=== PATIENT | female | born 1990 | race African-American/Black ===

== ENCOUNTER 2019-04-11 23:51 | Inpatient (IN) | payer OTHER ==
[2019-04-12] MEDS ORDERED: ONDANSETRON 4 MG TAB PO (01:00)
[2019-04-12] MEDS ORDERED: BISACODYL 10 MG SUPP PR (01:00)
[2019-04-12] MEDS ORDERED: hydrOXYzine HCL 25 MG TAB PO (01:00)
[2019-04-12] MEDS ORDERED: ACETAMINOPHEN 500 MG TAB PO (01:00)
[2019-04-12] MEDS: HYDROCODONE/APAP (5/325) TAB PO ×3 (01:01→21:20)
[2019-04-12 02:50] LABS: ADD UMIC YES; UR AMORPHOUS CRYSTAL FEW /HPF (NONE SEEN); UR ASCORBIC ACID NEGATIVE (NEGATIVE); UR BACTERIA FEW /HPF (NONE SEEN); UR BILIRUBIN (Dip) NEGATIVE (NEGATIVE); UR BLOOD (Dip) NEGATIVE (NEGATIVE); UR CLARITY SLIGHTLY CLOUDY (CLEAR); UR COLOR YELLOW (YELLOW); UR GLUCOSE (Dip) NEGATIVE (NEGATIVE); UR KETONES (Dip) NEGATIVE (NEGATIVE); UR LEUKOCYTE ESTERASE (Dip) 1+ Leu/ul (NEGATIVE); UR NITRITE (Dip) NEGATIVE (NEGATIVE); UR RBC 1 /HPF (0-5); UR SPECIFIC GRAVITY (Dip) 1.017 (1.003-1.030); UR SQUAMOUS EPITHELIAL CELL MANY /HPF (FEW); UR TOTAL PROTEIN (Dip) NEGATIVE (NEGATIVE); UR UROBILINOGEN (Dip) NEGATIVE (NEGATIVE); UR WBC 53 /HPF (0-5)
[2019-04-12 07:16] LABS: ADD MAN DIFF? NO
[2019-04-12 07:24] LABS: WHITE BLOOD COUNT 7.4 10^3/ul (4.8-10.8)
[2019-04-12 07:24] LABS: BASOPHILS % 0.3 % (0.0-2.0); EOSINOPHILS # 0.2 10^3/ul (0.0-0.5); HEMATOCRIT 32.7 % (37.0-47.0); LYMPHOCYTES # 1.8 10^3/ul (0.8-2.9); LYMPHOCYTES % 24.4 % (15.0-51.0); MEAN CORPUSCULAR HGB CONC 30.6 g/dl (32.0-37.0); MEAN CORPUSCULAR VOLUME 81.8 fl (82.0-101.0); MEAN PLATELET VOLUME 9.2 fl (7.4-10.4); MONOCYTES % 13.6 % (0.0-11.0); NEUTROPHIL # 4.4 10^3/ul (1.6-7.5); NEUTROPHILS % 58.9 % (39.0-77.0); PLATELET COUNT 315 10^3/UL (140-415); RED CELL DISTRIBUTION WIDTH 15.9 % (11.5-14.5)
[2019-04-12 07:52] LABS: ALANINE AMINOTRANSFERASE 35 IU/L (13-69); ALBUMIN/GLOBULIN RATIO 1.81; ALKALINE PHOSPHATASE 43 IU/L (42-121); ANION GAP 8 (5-13); ASPARTATE AMINO TRANSFERASE 18 IU/L (15-46); BILIRUBIN,INDIRECT 0.6 mg/dl (0-1.1); BILIRUBIN,TOTAL 0.6 mg/dl (0.2-1.3); BLOOD UREA NITROGEN 16 mg/dl (7-20); CALCIUM 9.8 mg/dl (8.4-10.2); CARBON DIOXIDE 27 mmol/L (21-31); CHLORIDE 104 mmol/L (97-110); Estimated GFR > 60 mL/min (>60); GLUCOSE 87 mg/dl (70-220); POTASSIUM 4.1 mmol/L (3.5-5.1); SODIUM 139 mmol/L (135-144); TOTAL PROTEIN 6.2 g/dl (6.1-8.1)
[2019-04-12] MEDS: GABAPENTIN 300 MG CAP PO ×3 (08:52→21:12)
[2019-04-12] MEDS: POLYETHYLENE GLYCOL 17 GM PACKET PO (08:56)
[2019-04-12] MEDS: DOCUSATE SODIUM 100 MG CAP PO ×2 (08:56→21:00)
[2019-04-12] MEDS: HEPARIN 5,000 UNIT/1 ML VIAL SC ×2 (08:56→21:20)
[2019-04-12] MEDS: ACETAMINOPHEN 325 MG TAB PO (09:11)
[2019-04-12] MEDS: CIPROFLOXACIN 250 MG TAB PO ×2 (09:55→18:13)
[2019-04-12 09:57] LABS: IRON 28 ug/dl (35-150)
[2019-04-12 10:08] LABS: % IRON SATURATION 10 % SAT (22-52); TOTAL IRON BINDING CAPACITY 290 ug/dl (241-421)
[2019-04-12] MEDS ORDERED: PENDING SANTYL ORDER FOR WOUND CARE XX (10:30)
[2019-04-12] MEDS: DIPHENHYDRAMINE 50 MG CAP PO (14:57)
[2019-04-12] MEDS: SENNA TAB PO (21:00)
[2019-04-12] MEDS: NORTRIPTYLINE 10 MG CAP PO (21:11)
[2019-04-13] MEDS: CIPROFLOXACIN 250 MG TAB PO ×2 (06:41→17:26)
[2019-04-13] MEDS: POLYETHYLENE GLYCOL 17 GM PACKET PO (09:00)
[2019-04-13] MEDS: ZINC SULFATE 220 MG CAP PO (09:12)
[2019-04-13] MEDS: ASCORBIC ACID 250 MG TAB PO (09:12)
[2019-04-13] MEDS: MULTIVITAMINS THERAPEUTIC TAB PO (09:12)
[2019-04-13] MEDS: GABAPENTIN 300 MG CAP PO ×3 (09:12→20:54)
[2019-04-13] MEDS: DOCUSATE SODIUM 100 MG CAP PO ×2 (09:12→20:53)
[2019-04-13] MEDS: HEPARIN 5,000 UNIT/1 ML VIAL SC ×2 (09:17→21:01)
[2019-04-13] MEDS: MUPIROCIN 2% 22 GM OINT TOP ×2 (12:12→20:53)
[2019-04-13] MEDS: SENNA TAB PO (20:53)
[2019-04-13] MEDS: NORTRIPTYLINE 10 MG CAP PO (20:54)
[2019-04-13] MEDS: HYDROCODONE/APAP (5/325) TAB PO (21:04)
[2019-04-13] MEDS: DIPHENHYDRAMINE 50 MG CAP PO (21:04)
[2019-04-14] MEDS: CIPROFLOXACIN 250 MG TAB PO ×2 (06:46→18:04)
[2019-04-14] MEDS: HYDROCODONE/APAP (5/325) TAB PO ×2 (09:09→20:30)
[2019-04-14] MEDS: GABAPENTIN 300 MG CAP PO ×3 (09:09→20:21)
[2019-04-14] MEDS: POLYETHYLENE GLYCOL 17 GM PACKET PO (09:09)
[2019-04-14] MEDS: FERROUS SULFATE (EC) 325 MG TAB PO ×2 (09:09→20:21)
[2019-04-14] MEDS: ZINC SULFATE 220 MG CAP PO (09:10)
[2019-04-14] MEDS: MULTIVITAMINS THERAPEUTIC TAB PO (09:10)
[2019-04-14] MEDS: DOCUSATE SODIUM 100 MG CAP PO ×2 (09:10→20:21)
[2019-04-14] MEDS: ASCORBIC ACID 250 MG TAB PO (09:10)
[2019-04-14] MEDS: CYCLOBENZAPRINE 10 MG TAB PO (09:10)
[2019-04-14] MEDS: HEPARIN 5,000 UNIT/1 ML VIAL SC ×2 (09:11→20:22)
[2019-04-14] MEDS: MUPIROCIN 2% 22 GM OINT TOP ×2 (09:13→20:22)
[2019-04-14] MEDS: NORTRIPTYLINE 10 MG CAP PO (20:21)
[2019-04-14] MEDS: SENNA TAB PO (20:25)
[2019-04-15] MEDS: CIPROFLOXACIN 250 MG TAB PO ×2 (05:36→18:07)
[2019-04-15] MEDS: POLYETHYLENE GLYCOL 17 GM PACKET PO (09:22)
[2019-04-15] MEDS: GABAPENTIN 300 MG CAP PO ×3 (09:23→21:23)
[2019-04-15] MEDS: CYCLOBENZAPRINE 10 MG TAB PO (09:23)
[2019-04-15] MEDS: ZINC SULFATE 220 MG CAP PO (09:23)
[2019-04-15] MEDS: FERROUS SULFATE (EC) 325 MG TAB PO ×2 (09:23→21:23)
[2019-04-15] MEDS: ASCORBIC ACID 250 MG TAB PO (09:23)
[2019-04-15] MEDS: MULTIVITAMINS THERAPEUTIC TAB PO (09:23)
[2019-04-15] MEDS: DOCUSATE SODIUM 100 MG CAP PO ×2 (09:23→21:23)
[2019-04-15] MEDS: HEPARIN 5,000 UNIT/1 ML VIAL SC ×2 (09:24→21:29)
[2019-04-15] MEDS: HYDROCODONE/APAP (5/325) TAB PO ×2 (09:24→21:35)
[2019-04-15] MEDS: MUPIROCIN 2% 22 GM OINT TOP ×2 (09:25→21:41)
[2019-04-15] MEDS: SENNA TAB PO (21:21)
[2019-04-15] MEDS: NORTRIPTYLINE 10 MG CAP PO (21:23)
[2019-04-15] MEDS: LACTULOSE 30ML CUP PO (21:35)
[2019-04-16] MEDS: CIPROFLOXACIN 250 MG TAB PO ×2 (06:49→18:06)
[2019-04-16] MEDS: POLYETHYLENE GLYCOL 17 GM PACKET PO (08:38)
[2019-04-16] MEDS: DOCUSATE SODIUM 100 MG CAP PO ×2 (08:38→21:15)
[2019-04-16] MEDS: MULTIVITAMINS THERAPEUTIC TAB PO (08:38)
[2019-04-16] MEDS: FERROUS SULFATE (EC) 325 MG TAB PO ×2 (08:38→21:16)
[2019-04-16] MEDS: ASCORBIC ACID 250 MG TAB PO (08:38)
[2019-04-16] MEDS: ZINC SULFATE 220 MG CAP PO (08:39)
[2019-04-16] MEDS: GABAPENTIN 300 MG CAP PO ×3 (08:40→21:15)
[2019-04-16] MEDS: HEPARIN 5,000 UNIT/1 ML VIAL SC ×2 (08:40→21:20)
[2019-04-16] MEDS: MUPIROCIN 2% 22 GM OINT TOP ×2 (08:42→21:20)
[2019-04-16 10:03] LABS: ADD MAN DIFF? NO
[2019-04-16 10:05] LABS: BASOPHIL # 0.1 10^3/ul (0.0-0.1); EOSINOPHILS # 0.2 10^3/ul (0.0-0.5); EOSINOPHILS % 3.3 % (0.0-7.0); HEMATOCRIT 34.8 % (37.0-47.0); HEMOGLOBIN 10.6 g/dl (12.0-16.0); LYMPHOCYTES # 1.7 10^3/ul (0.8-2.9); MEAN CORPUSCULAR HEMOGLOBIN 24.9 pg (29.0-33.0); MEAN CORPUSCULAR HGB CONC 30.5 g/dl (32.0-37.0); MEAN CORPUSCULAR VOLUME 81.9 fl (82.0-101.0); MEAN PLATELET VOLUME 8.9 fl (7.4-10.4); MONOCYTE # 0.6 10^3/ul (0.3-0.9); MONOCYTES % 8.8 % (0.0-11.0); NEUTROPHIL # 4.2 10^3/ul (1.6-7.5); NEUTROPHILS % 60.8 % (39.0-77.0); PLATELET COUNT 369 10^3/UL (140-415); RED BLOOD COUNT 4.25 10^6/ul (4.20-5.40); RED CELL DISTRIBUTION WIDTH 15.7 % (11.5-14.5)
[2019-04-16 10:26] LABS: ANION GAP 9 (5-13); BLOOD UREA NITROGEN 13 mg/dl (7-20); CARBON DIOXIDE 25 mmol/L (21-31); CHLORIDE 105 mmol/L (97-110); Estimated GFR > 60 mL/min (>60); GLUCOSE 104 mg/dl (70-220); PHOSPHORUS 4.3 mg/dl (2.5-4.9); SODIUM 139 mmol/L (135-144)
[2019-04-16] MEDS: HYDROCODONE/APAP (5/325) TAB PO ×2 (16:27→22:49)
[2019-04-16] MEDS: NORTRIPTYLINE 10 MG CAP PO (21:15)
[2019-04-16] MEDS: DIPHENHYDRAMINE 50 MG CAP PO (21:15)
[2019-04-16] MEDS: SENNA TAB PO (21:15)
[2019-04-17] MEDS: CIPROFLOXACIN 250 MG TAB PO ×2 (06:24→17:25)
[2019-04-17] MEDS: HYDROCODONE/APAP (5/325) TAB PO ×2 (06:24→15:25)
[2019-04-17] MEDS: DOCUSATE SODIUM 100 MG CAP PO ×2 (09:00→21:00)
[2019-04-17] MEDS: POLYETHYLENE GLYCOL 17 GM PACKET PO (09:51)
[2019-04-17] MEDS: MULTIVITAMINS THERAPEUTIC TAB PO (09:51)
[2019-04-17] MEDS: ZINC SULFATE 220 MG CAP PO (09:51)
[2019-04-17] MEDS: GABAPENTIN 300 MG CAP PO ×3 (09:51→21:08)
[2019-04-17] MEDS: FERROUS SULFATE (EC) 325 MG TAB PO ×2 (09:52→21:08)
[2019-04-17] MEDS: ASCORBIC ACID 250 MG TAB PO (09:52)
[2019-04-17] MEDS: HEPARIN 5,000 UNIT/1 ML VIAL SC ×2 (09:53→21:10)
[2019-04-17] MEDS: MUPIROCIN 2% 22 GM OINT TOP ×2 (10:02→21:11)
[2019-04-17] MEDS: SENNA TAB PO (21:00)
[2019-04-17] MEDS: NORTRIPTYLINE 10 MG CAP PO (21:08)
[2019-04-17] MEDS: DIPHENHYDRAMINE 50 MG CAP PO (21:16)
[2019-04-18] MEDS: CIPROFLOXACIN 250 MG TAB PO (06:17)
[2019-04-18] MEDS: DOCUSATE SODIUM 100 MG CAP PO ×2 (09:00→20:40)
[2019-04-18] MEDS: POLYETHYLENE GLYCOL 17 GM PACKET PO (09:00)
[2019-04-18] MEDS: ASCORBIC ACID 250 MG TAB PO (09:26)
[2019-04-18] MEDS: MUPIROCIN 2% 22 GM OINT TOP ×2 (09:26→20:44)
[2019-04-18] MEDS: FERROUS SULFATE (EC) 325 MG TAB PO ×2 (09:26→20:40)
[2019-04-18] MEDS: GABAPENTIN 300 MG CAP PO ×3 (09:26→20:40)
[2019-04-18] MEDS: MULTIVITAMINS THERAPEUTIC TAB PO (09:26)
[2019-04-18] MEDS: CHOLECALCIFEROL 2,000 UNIT CAP PO (09:26)
[2019-04-18] MEDS: ZINC SULFATE 220 MG CAP PO (09:26)
[2019-04-18] MEDS: HEPARIN 5,000 UNIT/1 ML VIAL SC ×2 (09:29→20:45)
[2019-04-18] MEDS: HYDROCODONE/APAP (5/325) TAB PO ×2 (09:31→20:40)
[2019-04-18] MEDS: NORTRIPTYLINE 10 MG CAP PO (20:40)
[2019-04-18] MEDS: SENNA TAB PO (20:41)
[2019-04-18] MEDS: DIPHENHYDRAMINE 50 MG CAP PO (21:56)
[2019-04-19] MEDS: POLYETHYLENE GLYCOL 17 GM PACKET PO (09:00)
[2019-04-19] MEDS: DOCUSATE SODIUM 100 MG CAP PO ×2 (09:00→21:00)
[2019-04-19] MEDS: ZINC SULFATE 220 MG CAP PO (09:10)
[2019-04-19] MEDS: GABAPENTIN 300 MG CAP PO ×3 (09:11→21:29)
[2019-04-19] MEDS: MULTIVITAMINS THERAPEUTIC TAB PO (09:11)
[2019-04-19] MEDS: FERROUS SULFATE (EC) 325 MG TAB PO ×2 (09:11→21:29)
[2019-04-19] MEDS: CHOLECALCIFEROL 2,000 UNIT CAP PO (09:11)
[2019-04-19] MEDS: ASCORBIC ACID 250 MG TAB PO (09:12)
[2019-04-19] MEDS: HEPARIN 5,000 UNIT/1 ML VIAL SC ×2 (09:27→21:30)
[2019-04-19] MEDS: MUPIROCIN 2% 22 GM OINT TOP ×2 (09:28→21:36)
[2019-04-19] MEDS: ACETAMINOPHEN 325 MG TAB PO (17:28)
[2019-04-19] MEDS: SENNA TAB PO (21:00)
[2019-04-19] MEDS: NORTRIPTYLINE 10 MG CAP PO (21:29)
[2019-04-19] MEDS: DIPHENHYDRAMINE 50 MG CAP PO (21:34)
[2019-04-19] MEDS: HYDROCODONE/APAP (5/325) TAB PO (21:35)
[2019-04-20] MEDS: CHOLECALCIFEROL 2,000 UNIT CAP PO (08:57)
[2019-04-20] MEDS: FERROUS SULFATE (EC) 325 MG TAB PO ×2 (08:58→20:06)
[2019-04-20] MEDS: GABAPENTIN 300 MG CAP PO ×3 (08:59→20:06)
[2019-04-20] MEDS: ASCORBIC ACID 250 MG TAB PO (08:59)
[2019-04-20] MEDS: MULTIVITAMINS THERAPEUTIC TAB PO (08:59)
[2019-04-20] MEDS: ZINC SULFATE 220 MG CAP PO (08:59)
[2019-04-20] MEDS: POLYETHYLENE GLYCOL 17 GM PACKET PO (09:00)
[2019-04-20] MEDS: HEPARIN 5,000 UNIT/1 ML VIAL SC ×2 (09:03→20:12)
[2019-04-20] MEDS: MUPIROCIN 2% 22 GM OINT TOP (09:23)
[2019-04-20] MEDS: ACETAMINOPHEN 325 MG TAB PO (16:42)
[2019-04-20] MEDS: NORTRIPTYLINE 10 MG CAP PO (20:06)
[2019-04-20] MEDS: CYCLOBENZAPRINE 10 MG TAB PO (20:06)
[2019-04-20] MEDS: HYDROCODONE/APAP (5/325) TAB PO (22:50)
[2019-04-21] MEDS: POLYETHYLENE GLYCOL 17 GM PACKET PO (09:00)
[2019-04-21] MEDS: FERROUS SULFATE (EC) 325 MG TAB PO ×2 (09:17→20:51)
[2019-04-21] MEDS: GABAPENTIN 300 MG CAP PO ×3 (09:17→20:52)
[2019-04-21] MEDS: MULTIVITAMINS THERAPEUTIC TAB PO (09:17)
[2019-04-21] MEDS: CHOLECALCIFEROL 2,000 UNIT CAP PO (09:18)
[2019-04-21] MEDS: ZINC SULFATE 220 MG CAP PO (09:18)
[2019-04-21] MEDS: ASCORBIC ACID 250 MG TAB PO (09:18)
[2019-04-21] MEDS: HEPARIN 5,000 UNIT/1 ML VIAL SC ×2 (09:19→22:15)
[2019-04-21] MEDS: HYDROCODONE/APAP (5/325) TAB PO (09:34)
[2019-04-21] MEDS: BACLOFEN 10 MG TAB PO ×2 (13:10→20:51)
[2019-04-21] MEDS: CYCLOBENZAPRINE 10 MG TAB PO (20:51)
[2019-04-21] MEDS: NORTRIPTYLINE 10 MG CAP PO (20:51)
[2019-04-21] MEDS: ACETAMINOPHEN 325 MG TAB PO (20:55)
[2019-04-22] MEDS: GABAPENTIN 300 MG CAP PO ×3 (08:59→20:04)
[2019-04-22] MEDS: FERROUS SULFATE (EC) 325 MG TAB PO ×2 (08:59→20:04)
[2019-04-22] MEDS: CHOLECALCIFEROL 2,000 UNIT CAP PO (08:59)
[2019-04-22] MEDS: ASCORBIC ACID 250 MG TAB PO (08:59)
[2019-04-22] MEDS: MULTIVITAMINS THERAPEUTIC TAB PO (08:59)
[2019-04-22] MEDS: ZINC SULFATE 220 MG CAP PO (08:59)
[2019-04-22] MEDS: BACLOFEN 10 MG TAB PO ×3 (09:00→20:03)
[2019-04-22] MEDS: POLYETHYLENE GLYCOL 17 GM PACKET PO (09:00)
[2019-04-22] MEDS: HEPARIN 5,000 UNIT/1 ML VIAL SC ×2 (09:01→20:21)
[2019-04-22] MEDS: ACETAMINOPHEN 325 MG TAB PO (20:04)
[2019-04-22] MEDS: CYCLOBENZAPRINE 10 MG TAB PO (20:04)
[2019-04-22] MEDS: NORTRIPTYLINE 10 MG CAP PO (20:09)
[2019-04-23] MEDS: CYCLOBENZAPRINE 10 MG TAB PO (08:52)
[2019-04-23] MEDS: MULTIVITAMINS THERAPEUTIC TAB PO (08:52)
[2019-04-23] MEDS: FERROUS SULFATE (EC) 325 MG TAB PO ×2 (08:52→21:24)
[2019-04-23] MEDS: BACLOFEN 10 MG TAB PO ×3 (08:52→21:24)
[2019-04-23] MEDS: ASCORBIC ACID 250 MG TAB PO (08:52)
[2019-04-23] MEDS: GABAPENTIN 300 MG CAP PO ×3 (08:52→21:24)
[2019-04-23] MEDS: ZINC SULFATE 220 MG CAP PO (08:53)
[2019-04-23] MEDS: CHOLECALCIFEROL 2,000 UNIT CAP PO (08:53)
[2019-04-23] MEDS: HEPARIN 5,000 UNIT/1 ML VIAL SC ×2 (08:55→21:26)
[2019-04-23] MEDS: POLYETHYLENE GLYCOL 17 GM PACKET PO (08:57)
[2019-04-23] MEDS: NORTRIPTYLINE 10 MG CAP PO (21:25)
[2019-04-23] MEDS: DIPHENHYDRAMINE 50 MG CAP PO (21:30)
[2019-04-24] MEDS: POLYETHYLENE GLYCOL 17 GM PACKET PO (09:00)
[2019-04-24] MEDS: ASCORBIC ACID 250 MG TAB PO (09:05)
[2019-04-24] MEDS: FERROUS SULFATE (EC) 325 MG TAB PO (09:05)
[2019-04-24] MEDS: MULTIVITAMINS THERAPEUTIC TAB PO (09:05)
[2019-04-24] MEDS: GABAPENTIN 300 MG CAP PO ×2 (09:05→13:00)
[2019-04-24] MEDS: ZINC SULFATE 220 MG CAP PO (09:05)
[2019-04-24] MEDS: BACLOFEN 10 MG TAB PO ×2 (09:05→13:00)
[2019-04-24] MEDS: CHOLECALCIFEROL 2,000 UNIT CAP PO (09:05)
[2019-04-24] MEDS: HEPARIN 5,000 UNIT/1 ML VIAL SC (09:07)
== END 2019-04-24 13:40 | disposition home health service (06) | DRG 59 ==
LOC: VRC 04-15 13:05
DX: G35 Multiple sclerosis (principal); N39.0 Urinary tract infection, site not specified; N31.9 Neuromuscular dysfunction of bladder, unspecified; D64.9 Anemia, unspecified; M62.838 Other muscle spasm; G62.9 Polyneuropathy, unspecified; G89.4 Chronic pain syndrome; R53.81 Other malaise; K59.00 Constipation, unspecified
CPT/HCPCS: 73510; 80048; 80053; 81001; 82306; 82652; 83540; 83735; 84100; 84703; 85025; 87081; 87086; 92523; 97110; 97112; 97116; 97163; 97167; 97530; 97535; 97542